=== PATIENT | male | born 1995 | race Hispanic/Latino ===

== ENCOUNTER → 2018-08-18 | Outpatient (CLI) | payer OTHER ==
[~2018-08-18] MED LIST: IOHEXOL-350 75 ML VIAL IV ONE
== END | disposition home or self-care (01) ==
LOC: RAH 09:20
PROVIDERS: ATTEND Neurological Surgery
DX: M79.9 Soft tissue disorder, unspecified (principal)
CPT/HCPCS: 72132; Q9967